=== PATIENT | female | born 2000 | race Caucasian/White ===

== ENCOUNTER → 2020-10-29 09:20 | Outpatient (CLI) | payer OTHER, SELFPAY ==
[2020-10-29 09:54] LABS: Add Manual Diff / Slide Review NO; Basophils Absolute Auto 0 /uL (0-100); Basophils Percent Auto 0.6 % (0-2); Eosinophils Absolute Auto 0 /uL (0-450); Eosinophils Percent Auto 0.2 % (2-4); Lymphocytes Absolute Auto 1500 /uL (1100-4500); Lymphocytes Percent Auto 19.9 % (25-40); Mean Corpuscular HGB Conc 34.2 % (30-36); Mean Corpuscular Hemoglobin 29.4 PG (26-34); Mean Corpuscular Volume 85.9 fL (80-100); Monocytes Absolute Auto 300 /uL (0-900); Monocytes Percent Auto 4.1 % (3-14); Neutrophils Absolute Auto 5700 /uL (1500-7000); Neutrophils Percent Auto 75.2 % (50-75); Platelet Count 221 X10^3/uL (150-400); Red Blood Cell Count 4.78 X10^6/uL (4.0-5.2); Red Cell Distribution Width 13.5 % (11.6-14.8); White Blood Cell Count 7.6 X10^3/uL (4.5-11.0)
[2020-10-29 11:05] LABS: HCG Quantitative /Beta subunit 2200.3 mIU/mL
== END ==
PROVIDERS: PCP Nurse Practitioner Family; Referring Provider Obstetrics & Gynecology; Visit Provider Obstetrics & Gynecology
DX: O20.0 Threatened abortion (principal)
CPT/HCPCS: 36415; 84702; 85025

== ENCOUNTER → 2020-11-02 07:20 | Outpatient (CLI) | payer OTHER, SELFPAY ==
[2020-11-02 09:13] LABS: HCG Quantitative /Beta subunit 344.2 mIU/mL
== END ==
PROVIDERS: PCP Nurse Practitioner Family; Referring Provider Obstetrics & Gynecology; Visit Provider Obstetrics & Gynecology
DX: O20.0 Threatened abortion (principal)
CPT/HCPCS: 36415; 84702

== ENCOUNTER → 2021-02-15 17:33 | Outpatient (CLI) | payer OTHER, SELFPAY ==
[2021-02-15 19:01] LABS: HCG Quantitative /Beta subunit 3906 mIU/mL
== END ==
PROVIDERS: PCP Nurse Practitioner Family; Referring Provider Obstetrics & Gynecology; Visit Provider Obstetrics & Gynecology
DX: Z34.90 Encounter for supervision of normal pregnancy, unspecified, unspecified trimester (principal)
CPT/HCPCS: 36415; 84702

== ENCOUNTER → 2021-02-17 17:26 | Outpatient (CLI) | payer OTHER, SELFPAY ==
[2021-02-17 18:39] LABS: HCG Quantitative /Beta subunit 7574.5 mIU/mL
== END ==
PROVIDERS: PCP Nurse Practitioner Family; Referring Provider Obstetrics & Gynecology; Visit Provider Obstetrics & Gynecology
DX: Z34.90 Encounter for supervision of normal pregnancy, unspecified, unspecified trimester (principal)
CPT/HCPCS: 36415; 84702

== ENCOUNTER → 2024-03-14 11:53 | Outpatient (CLI) | payer OTHER, MEDICAID, SELFPAY ==
[2024-03-14 14:58] LABS: Urine N gonorrhoeae NOT DETECTED
[2024-03-14 15:02] LABS: Urine Chlamydia NOT DETECTED
== END ==
PROVIDERS: PCP Nurse Practitioner Family; Visit Provider Specialist
DX: Z11.3 Encounter for screening for infections with a predominantly sexual mode of transmission (principal); Z3A.29 29 weeks gestation of pregnancy
CPT/HCPCS: 87491; 87591

== ENCOUNTER 2024-05-07 00:27 | Inpatient (IN) | payer OTHER, MEDICAID, SELFPAY ==
--- NOTE | 2024-05-07 01:21 | PM.OBHP.IH.1 ---
OB HPI Date/Time Date of admission: 05/07/24 Date Patient Seen: 05/07/24 Time Patient Seen: 00:30 History of Present Condition Chief complaint: LABOR LESLIE Calculator Estimated Delivery Date Method Current WG Current Estimate 05/30/24 LMP (Certain) 36w 5d Estimated Gestational Age (weeks): 36+5 : 3 Para: 1 care: good care, initiated at week #, number of visits and pounds weight gain Dating criteria OB: LMP confirmed by 1st trimester US Ultrasounds: normal 1st trimester US and normal mid trimester US Obstetrical complications: none Medical complications OB: cardiovascular (labial varicosities) Preadmission Labs Last OB Lab Results: Hct 41.0 % (36-46) 10/29/20 09:38 Hgb 14.0 g/dL (12.0-16.0) 10/29/20 09:38 Group B Strep (PCR) Pending 05/07/24 00:10 -: Chlamydia screen: negative, Gonorrhea screen: negative and Urine: negative External Labs Blood type OB HPI: B (+) positive HCT: 42.4 -: Antibody screen: negative, HBsAG: negative, RPR/VDLR: negative, GBS status: unknown and Urine: negative -: Rubella: immune and Varicella: immune HCAB: negative Glucose Tolerance Testin hr (71) Prior (ies) Past Pregnancies Del. Date GA/Weeks Labor Lgth Wt Sex Route Outcome Anesthesia Place Delv Breastfeed Preg Comp Name 10/11/20 6.5 spontaneous 10/21/21 40.5 8 8 lb 6 oz Male vaginal live - full term epidural [place] 13 months none [place] Delivery Date: 10/11/20 Last Updated by: Dalia Aguirre RN passed spontaneously, no complications Evaluation Evaluation Baseline heart rate: 135 Variability: Moderate (11-25) monitor accelerations: Present Monitor Decelerations: Absent Contraction Frequency (minutes): 10 Uterine Contraction Intensity: Mild Status: Category l Non-invasive Membranes Rupture Test: positive PFSH Medical History (Updated 04/04/24 @ 10:27 by Ashley Solo MD) Seizure disorder Family History (Updated 03/04/24 @ 10:05 by Dalia Aguirre RN) Grandfather Leukemia Social History marital status: number of children: 1 household members: spouse lives independently: Yes caregiver/support person: Yes housing: house pets and animals: No education level: college (Associate's degree) occupational status: previously employed current occupational exposures/hazards: No special bozena needs: No travel history: recent (domestic only) seatbelt use: always water heater temp set < 120 deg: Yes working smoke detector in home: Yes fire extinguisher in home: No carbon monox detector in home: Yes firearms in home: No do you feel safe at home: Yes Smoking Status: Unknown if ever smoked second hand exposure: No alcohol intake: never substance use type: does not use during the past year weight has: remained stable well-balanced diet: daily or most days daily servings fruits/ve-4 caffeine: Yes (single cup coffee in AM) Type(s) of exercise: other (active w/ toddler) Meds Home Medications and Allergies Home Medications Medication Instructions Recorded Confirmed Type magnesium citrate 125 mg capsule 125 mg PO DAILY 03/04/24 04/23/24 History vitamins no.83-iron 29 1 cap PO DAILY 03/04/24 04/23/24 History mg-folate no.6 1 mg-dha 150 mg capsule Allergies Allergy/AdvReac Type Severity Reaction Status Date / Time nitrofurantoin Allergy extremely Verified 04/23/24 15:53 itchy OB Exam Narrative Exam Narrative: Generally: Patient walking around in room, no acute distress Lungs: Clear to auscultation bilaterally Cardiovascular: Regular rate and rhythm Fundal height: 36 cm Estimated weight: 6-1/2 lb Extremities: No edema Assessment and Plan Assessment and Plan Assessment and Plan narrative: Assessment: 23-year-old 3 para 1 at 36-,5/7 weeks gestation with premature rupture of membranes GBS unknown Labial varicosities Plan: GBS PCR sent stat Patient would like for results to come back before initiating antibiotics Is undecided at this point about an epidural Expected management to spontaneous vaginal deliveries Time-Based Coding :: [TOTAL MINUTES] spent with patient and on the chart (including review of chart, obtaining history, exam, reviewing outside data, placing orders, documenting exam and treatment plan, and counseling patient) on [DATE].
[2024-05-07 01:55] LABS: Add Manual Diff / Slide Review NO; Basophils Absolute Auto 0 /uL (0-100); Basophils Percent Auto 0.3 % (0-2); Eosinophils Absolute Auto 0 /uL (0-450); Eosinophils Percent Auto 0.3 % (2-4); Hematocrit 36.8 % (36-46); Hemoglobin 12.8 g/dL (12.0-16.0); Lymphocytes Absolute Auto 1700 /uL (1100-4500); Lymphocytes Percent Auto 20.6 % (25-40); Mean Corpuscular HGB Conc 34.8 % (30-36); Mean Corpuscular Hemoglobin 30.7 PG (26-34); Mean Corpuscular Volume 88.1 fL (80-100); Monocytes Absolute Auto 500 /uL (0-900); Monocytes Percent Auto 6.5 % (3-14); Neutrophils Absolute Auto 6100 /uL (1500-7000); Neutrophils Percent Auto 72.3 % (50-75); Platelet Count 118 X10^3/uL (150-400); Red Blood Cell Count 4.17 X10^6/uL (4.0-5.2); Red Cell Distribution Width 13.3 % (11.6-14.8); White Blood Cell Count 8.4 X10^3/uL (4.5-11.0)
[2024-05-07 02:14] LABS: Strep Grp B PCR POS for Grp B Strep
[2024-05-07] MEDS: AMPICILLIN 2,000 MG in SODIUM CHLORIDE 0.9% 100 ML 200 MG IV (02:56)
--- NOTE | 2024-05-07 06:34 | PM.OBPNLAB ---
Date/Time Date Patient Seen: 05/07/24 Time Patient Seen: 06:34 Pain Control Pain control: tolerating well Pelvic Exam Dilation (cm): 3 Effacement (%): 80 station: -1 Amniotic membrane status: Ruptured Comments: Pt standing at bedside GBS came back positive, antibiotic prophylaxis started Contractions Contractions on admission: irregular Monitor mode: External Contraction frequency (min): 3 Contraction duration (min): 1 Contraction intensity: Moderate Status status: Category l Heart Rate Baseline: 135 Monitor Accelerations: Present Monitor Decelerations: Absent Monitor Variability: Moderate Assessment and Plan Assessment: active labor Plan: continuous present management Comments: Pitocin augmentation as needed Epidural as requested Expectant management to
[2024-05-07] MEDS: AMPICILLIN 1,000 MG in SODIUM CHLORIDE 0.9% 100 ML 200 MG IV (06:41)
[2024-05-07] MEDS: OXYTOCIN PREMIX 30 UNIT/500 ML PLAST..BAG IV (11:48)
[2024-05-07] MEDS: KETOROLAC 30 MG/ML VIAL IV (12:55)
--- NOTE | 2024-05-07 14:10 | PM.OBPRVD ---
Events: Labor Augmentation and Premature Rupture Membrane Labor & Delivery Delivery date: 05/07/24 Cervical ripening method: none Induction method: none Delivery augmentation: pitocin Delivery monitor: external FHT and external uterine Route of delivery: Episiotomy description: None L&D Laceration Description: None Quantitative Blood Loss: 272 Anesthesia Type: None Complications: None Narrative: Patient complete and pushed x 2. At 12:22 p.m., a live male infant delivered spontaneously in the [facility], over an intact perineum. Loose nuchal cord x 1 reduced on the perineum. The remainder of the body delivered without difficulty and placed on mom's abdomen. Pitocin given in the IVF's. After the cord stopped pulsing, the cord was double clamped and cut. Cord bloods were obtained. The placenta delivered intact with a 3 vessel cord at 12:42 p.m. The fundus was massaged to firm. No lacerations observed. No pain meds. Apgars 9 at one minute and 9 at 5 minutes. QBL: 272 cc. BW 6#10oz. Mom and stable to recovery. Baby 1: Infant gender: Male Presentation: vertex Position: Left Occiput Anterior Placenta delivery description: Spontaneous Cord Vessel Description: 3 Vessels, Nuchal Cord (x1), Loose, Reduced and Clamped/Cut (after the cord stopped pulsing) score (1 min): 9 score (5 min): 9 weight: 6 lb 10 oz Plan for aftercare: Routine care
[2024-05-07] MEDS: IBUPROFEN 600 MG TABLET PO ×2 (18:31→23:28)
[2024-05-08 06:11] LABS: Hematocrit 30.1 % (36-46); Hemoglobin 10.6 g/dL (12.0-16.0)
[2024-05-08] MEDS: DOCUSATE 100 MG CAPSULE PO (08:31)
[2024-05-08] MEDS: IBUPROFEN 400 MG TABLET 200 MG PO (08:32)
--- NOTE | 2024-05-12 15:19 | PM.OBDS.1 ---
Discharge Providers Provider Date of admission: 05/07/24 00:27 Discharge Date: 05/08/24 Primary care physician: ADRIAN Hernandez Consults: 05/07/24 01:23 Consult to Anesthesiology Urgent Comment: Consulting Provider: Anesthesiologist Reason for consultation: Epidural Has provider been notified: No Discharge provider: Oanh Islas MD Summary Hospital Course Date Patient Seen: 05/08/24 Time Patient Seen: 17:00 Diagnoses: 36+5 wks gestation PPROM GBS positive Spontaneous vaginal delivery GBS prophlaxis Hospital Course: Patient is a 23 year old who presented on 05/07/24 with rupture of membranes. She progessed into active labor with Pitocin augmentation. She received 2 doses of antibiotics for GBS prophylaxis. She had an unmedicated without complication. No lacerations. She was discharged to home on 05/08/24 with BF going well. Minimal lochia. Peripartum Data Delivery Method: Natural Vaginal Laceration Description: None Episiotomy description: None Procedures: Spontaneous vaginal delivery complications: none 1: Gender: Male Disposition of : home Status at Discharge Cognitive/behavioral status at discharge: oriented Functional status at discharge: independent ambulation Overall status at discharge: patient is progressing back to baseline Time Spent with Patient Time attestation: Total time spent providing and/or coordinating discharge services: Time spent: Less than 30 minutes Objective Labs 05/08/24 05:52 Exam Narrative Exam Narrative: Gen: Walking in room, NAD Fundus: Firm U/-2 Ext: No edema, negative Yandel's Discharge Plan Discharge Plan Patient Disposition: Home Provider Discharge Comment: Ibuprofen 600 mg every 6 hours as needed for cramping Tylenol 650 mg every 6 hours as needed for pain Continue vitamins Push oral fluids Discharge orders & Medications Prescriptions: Continued [id number] 29 mg iron- 1 mg-150 mg capsule 1 cap PO DAILY magnesium citrate 125 mg capsule 125 mg PO DAILY Follow up/Referrals: Oanh Islas MD [Physician] - 06/19/24 2:00 pm (Please arrive at 1:45pm on to see Dr. Solo for your 6 week appointment. ) Diet/Activity/Treatments Diet: Regular Activity: Nothing in the vagina for 6 weeks Skin/Wound/Dressing Care Report to your healthcare provider any signs of infection, such as:: chills, fever, increased pain and unusual drainage Visit Report/Discharge Packet Instructions: DI for Labor and Delivery, Vaginal Stand Alone Forms: Discharge: Care, Patient Portal/API, Stroke Signs & Symptoms Discharge Data Primary Care Provider: Tiffanie Yee
== END 2024-05-08 17:10 | disposition home or self-care (01) | DRG 560 ==
PROVIDERS: Admitting Provider Obstetrics & Gynecology; PCP Nurse Practitioner Family; Referring Provider Obstetrics & Gynecology; Visit Provider Obstetrics & Gynecology
DX: O42.013 Preterm premature rupture of membranes, onset of labor within 24 hours of rupture, third trimester (principal); O99.824 Streptococcus B carrier state complicating childbirth; Z3A.36 36 weeks gestation of pregnancy; Z37.0 Single live birth
CPT/HCPCS: 36415; 59050; 59409; 84112; 85014; 85018; 85025; 86850; 86900; 86901; 87653; G0379; J0290; J1885; J2590